=== PATIENT | male | born 1965 | race Caucasian/White ===

== ENCOUNTER 2018-07-27 15:07 | Emergency (ER) | payer OTHER ==
[2018-07-27 15:36] VITALS: BP 139/83; PULSE 77; RESP 16; TEMP 98.7; O2SAT 99
--- NOTE | 2018-07-27 16:15 | C.PDOC ---
History Of Present Illness 52 y/o male presents to the ED requesting detox from heroin and cocaine. Last use was yesterday. Patient offers no complaints. Currently he denies any nausea , vomiting, tremors, or other withdrawal symptoms. No suicidal or homicidal ideation. Time Seen by Provider: 07/27/18 16:01 Chief Complaint (Nursing): Substance Abuse History Per: Patient History/Exam Limitations: no limitations Onset/Duration Of Symptoms: Days Current Symptoms Are (Timing): Still Present Suicide/Self Injury Attempted (Context): None Associated Symptoms: denies: Suicidal Thoughts, Suicidal Plan Involuntary Hold By: None Past Medical History Reviewed: Historical Data, Nursing Documentation, Vital Signs Vital Signs: Last Vital Signs Temp 98.7 F 07/27/18 15:17 Pulse 77 07/27/18 15:17 Resp 16 07/27/18 15:17 BP 139/83 07/27/18 15:17 Pulse Ox 99 07/27/18 16:15 - Medical History PMH: Asthma Surgical History: No Surg Hx Family History: States: No Known Family Hx - Social History Hx Tobacco Use: Yes Hx Alcohol Use: No Hx Substance Use: Yes (LAST USE YESTERDAY) - Immunization History Hx Tetanus Toxoid Vaccination: No Hx Influenza Vaccination: No Hx Pneumococcal Vaccination: No Review Of Systems Except As Marked, All Systems Reviewed And Found Negative. Constitutional: Negative for: Fever Cardiovascular: Negative for: Chest Pain Respiratory: Negative for: Shortness of Breath Musculoskeletal: Negative for: Other (tremors) Neurological: Negative for: Weakness Psych: Positive for: Other (Substance abuse). Negative for: Suicidal ideation ( or homicidal) Physical Exam - Physical Exam Appears: Non-toxic, No Acute Distress Skin: Warm, Dry, No Rash Head: Atraumatic, Normacephalic Eye(s): bilateral: Normal Inspection Oral Mucosa: Moist Neck: Normal ROM Chest: Symmetrical Cardiovascular: Rhythm Regular Respiratory: Normal Breath Sounds, No Accessory Muscle Use Gastrointestinal/Abdominal: Soft, No Tenderness, No Distention Extremity: Bilateral: Atraumatic, Normal Color And Temperature Neurological/Psych: Oriented x3, Normal Speech ED Course And Treatment O2 Sat by Pulse Oximetry: 99 (RA) Pulse Ox Interpretation: Normal Medical Decision Making Medical Decision Making: Impression: 52 year old seeking detox Plan: Case discussed with crisis team, no detox beds available at this time. Patient notified and educated regarding wait list for detox. Outpatient resources provided by contact worker. Patient advised to follow up or return to the ER for any new or worsening symptoms. Disposition - Disposition Referrals: [facility] [Outside] [facility] [Outside] [facility] [Outside] Disposition: HOME/ ROUTINE Disposition Time: 03:00 Condition: STABLE Additional Instructions: return to er with worsening symptoms or concerns. please call for detox bed Instructions: Drug Abuse and Drug Addiction (DC) Forms: [employer] (Bulgarian) - Clinical Impression Clinical Impression: Drug abuse - Scribe Statement The provider has reviewed the documentation as recorded by the Adelaida Whittington Provider Attestation: All medical record entries made by the Adelaida were at my direction and personally dictated by me. I have reviewed the chart and agree that the record accurately reflects my personal performance of the history, physical exam, medical decision making, and the department course for this patient. I have also personally directed, reviewed, and agree with the discharge instructions and disposition.
== END 2018-07-27 16:20 | disposition home or self-care (01) ==
LOC: C.ER 15:07
DX: F19.10 Other psychoactive substance abuse, uncomplicated (principal)